=== PATIENT | male | born 1930 | race Caucasian/White ===

== ENCOUNTER 2017-10-15 14:41 | Emergency (ER) | payer OTHER, MEDICARE ==
[~2017-10-15] VITALS: Ht 167.6 cm; Wt 81.2 kg
[~2017-10-15 14:41] MED LIST: AMLODIPINE BESYL5 MG PO; ASPIRIN81 M1 PO; ATORVASTATIN CA10 MG PO; CALCIUM500 M3 PO; GLUCOSAMINE CO1 EAC3 PO; HYDROCHLOROTHIA25 MG PO; LIPITOR10 MG PO; LOSARTAN POTAS100 MG PO; METAMUCIL POWD798 GM PO; OMEPRAZOLE40 M1 PO; SODIUM BICARBO325 MG PO; VITAMIN B-6100 MG PO; VITAMIN D31000 UNIT PO; ZEGERID; ZOFRAN4 MG PO
[2017-10-15 15:41] LABS: HEMATOCRIT 40.8 % (38.0-50.0); HEMOGLOBIN 14.6 G/DL (12.5-16.6); MCH 31.6 PG (29.0-34.0); MCHC 35.8 G/DL (30.0-36.0); MCV 88.3 FL (86-99); PLATELET COUNT 157 K/uL (156-360); RBC DIS.WIDTH-SD 42.5 % (39-53); RED BLOOD COUNT 4.62 M/uL (4.00-5.50); WHITE BLOOD COUNT 5.3 K/uL (4.1-10.2)
[2017-10-15 15:55] LABS: CHLORIDE 86 mEq/L (99-109); POTASSIUM 4.4 mEq/L (3.7-5.4); SODIUM 125 mEq/L (136-147)
[2017-10-15 15:56] LABS: GLUCOSE 100 mg/dL (70-99)
[2017-10-15 16:00] LABS: CREATININE 1.1 mg/dL (0.6-1.3); GFR ESTIMATE (CALCULATED) > 59 mL/min/ (58.99-99999)
[2017-10-15 16:01] LABS: UREA NITROGEN (BUN) 15 mg/dL (9-23)
[2017-10-15] MEDS ORDERED: PROAIR HFA8.5 GM IH (17:06)
[2017-10-15] MEDS ORDERED: MORGIDOX100 MG PO (17:06)
[2017-10-15 18:10] VITALS: BP 163/83
== END 2017-10-15 18:10 | disposition home or self-care (01) ==
LOC: EME 14:41
DX: J40 Bronchitis, not specified as acute or chronic (principal); E78.5 Hyperlipidemia, unspecified; I10 Essential (primary) hypertension; K21.9 Gastro-esophageal reflux disease without esophagitis
CPT/HCPCS: 71046; 80048; 85027; 87502; 94640; 99281; 99284; J8540

== ENCOUNTER 2017-10-30 19:12 | Emergency (ER) | payer OTHER, MEDICARE ==
[~2017-10-30] VITALS: Ht 177.8 cm; Wt 80.4 kg
[~2017-10-30 19:12] MED LIST changes: +MORGIDOX100 MG PO; +PROAIR HFA8.5 GM IH
[2017-10-30 21:22] VITALS: BP 172/88
== END 2017-10-30 21:24 | disposition home or self-care (01) ==
LOC: EME 19:12
DX: S91.202A Unspecified open wound of left great toe with damage to nail, initial encounter (principal); L60.0 Ingrowing nail; W26.0XXA Contact with knife, initial encounter; Y93.89 Activity, other specified; I10 Essential (primary) hypertension; E78.5 Hyperlipidemia, unspecified; E03.9 Hypothyroidism, unspecified
CPT/HCPCS: 99281; 99283

== ENCOUNTER 2018-05-09 09:36 | Emergency (ER) | payer OTHER, MEDICARE ==
[~2018-05-09] VITALS: Ht 177.8 cm; Wt 83.1 kg
[2018-05-09 11:46] LABS: HEMATOCRIT 39.5 % (38.0-50.0); HEMOGLOBIN 14.4 G/DL (12.5-16.6); MCHC 36.5 G/DL (30.0-36.0); PLATELET COUNT 197 K/uL (156-360); RBC DIS.WIDTH-CV 13.3 % (11.8-14.6); RBC DIS.WIDTH-SD 43.2 % (39-53); WHITE BLOOD COUNT 7.5 K/uL (4.1-10.2)
[2018-05-09 11:48] LABS: MCV 87.8 FL (86-99)
[2018-05-09 11:57] LABS: CHLORIDE 97 mEq/L (99-109); POTASSIUM 4.1 mEq/L (3.7-5.4); SODIUM 132 mEq/L (136-147)
[2018-05-09 11:59] LABS: GLUCOSE 96 mg/dL (70-99)
[2018-05-09 12:02] LABS: CREATININE 0.8 mg/dL (0.6-1.3); GFR ESTIMATE (CALCULATED) > 59 mL/min/ (58.99-99999)
[2018-05-09 12:03] LABS: UREA NITROGEN (BUN) 8 mg/dL (9-23)
[2018-05-09 12:06] LABS: TROP-I INTERPRETATION NEGATIVE; TROPONIN-I 0.02 ng/mL (0.0-0.30)
[2018-05-09 15:16] LABS: TROP-I INTERPRETATION NEGATIVE; TROPONIN-I 0.03 ng/mL (0.0-0.30)
[2018-05-09 16:30] VITALS: BP 156/98
== END 2018-05-09 16:30 | disposition home or self-care (01) ==
LOC: EME 09:36
PROVIDERS: Emergency Medicine
DX: I10 Essential (primary) hypertension (principal); F41.9 Anxiety disorder, unspecified; K21.9 Gastro-esophageal reflux disease without esophagitis; E78.5 Hyperlipidemia, unspecified; Z79.82 Long term (current) use of aspirin
CPT/HCPCS: 70450; 80048; 81003; 84484; 85027; 93005; 99281; 99284